=== PATIENT | female | born 1975 ===

== ENCOUNTER 2019-03-16 20:42 | Emergency (ER) | payer MEDICAID, OTHER ==
[~2019-03-16] VITALS: Ht 175.3 cm; Wt 79.5 kg
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
--- NOTE | 2019-03-16 20:44 | NUR ---
EMS GAVE ZOFRAN 4MG AND BENADRYL 50 MG IV
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
[2019-03-16] MEDS ORDERED: dexamethasone 4mg tablet PO ONE (21:05)
--- NOTE | 2019-03-16 21:10 | NUR ---
HEAD WOUND CLEANED AND ASSESSED BY DR ALONZO
[2019-03-16 21:33] VITALS: BP 132/79
== END 2019-03-16 22:20 | disposition home or self-care (01) ==
LOC: ER 20:43
DX: J30.1 Allergic rhinitis due to pollen (principal); H57.89 Other specified disorders of eye and adnexa; Z88.5 Allergy status to narcotic agent
CPT/HCPCS: 99283